=== PATIENT | female | born 1975 | race Caucasian/White ===

== ENCOUNTER 2016-09-07 22:49 | Emergency (ER) | payer SELFPAY ==
[~2016-09-07] VITALS: Ht 157.5 cm; Wt 98.4 kg
[2016-09-08] MEDS ORDERED: IBUPROFEN 200 MG TABLET PO ONE (00:30)
[2016-09-08] MEDS ORDERED: IBUPROFEN 200 MG TABLET ONE (00:37)
[2016-09-08] MEDS ORDERED: DIPH,PERTUSS(ACELL),TET VAC/PF 0.5 ML IM-VACC ONE ×2 (00:37)
[2016-09-08 01:05] VITALS: BP 128/70
== END 2016-09-08 01:05 | disposition home or self-care (01) ==
LOC: ED 09-08 01:03
DX: S70.11XA Contusion of right thigh, initial encounter (principal); Z90.49 Acquired absence of other specified parts of digestive tract; X58.XXXA Exposure to other specified factors, initial encounter; Y93.89 Activity, other specified; Y92.89 Other specified places as the place of occurrence of the external cause; Y99.8 Other external cause status
CPT/HCPCS: 90471; 90715

== ENCOUNTER 2020-12-18 07:02 | Emergency (ER) | payer MEDICAID ==
[~2020-12-18] VITALS: Ht 157.5 cm; Wt 89.0 kg
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
--- NOTE | 2020-12-18 07:20 | NUR ---
pt tearful saying shes scared to take antibodics d/t her dying from antibodics. resassurence given multiple times with no evidence of understanding.
--- NOTE | 2020-12-18 07:32 | NUR ---
report received from seven perdomo
[2020-12-18 07:41] VITALS: BP 115/71
[2020-12-18] MEDS ORDERED: BACITRACIN ZINC OINT 500U/GM, 0.9 GM ONE ×2 (07:51→07:53)
--- NOTE | 2020-12-18 07:59 | NUR ---
edt at bedside for wound care/dressing
--- NOTE | 2020-12-18 08:30 | NUR ---
dishcarge instructions reviewed, pt educated on prescription, follow-up, and return criteria. pt a&o, resps even and unlabored, vss. ambulatory to discharge with steady gait.
== END 2020-12-18 08:32 | disposition home or self-care (01) ==
LOC: ED 08:26
DX: T24.202A Burn of second degree of unspecified site of left lower limb, except ankle and foot, initial encounter (principal); T31.0 Burns involving less than 10% of body surface; L03.116 Cellulitis of left lower limb; Z90.49 Acquired absence of other specified parts of digestive tract; X08.8XXA Exposure to other specified smoke, fire and flames, initial encounter; Y93.89 Activity, other specified; Y92.89 Other specified places as the place of occurrence of the external cause; Y99.8 Other external cause status
CPT/HCPCS: 16020; 99283